=== PATIENT | female | born 2000 | race Caucasian/White ===

== ENCOUNTER 2024-11-14 23:19 | Inpatient (IN) | payer MEDICAID ==
[~2024-11-14] VITALS: Ht 162.6 cm; Wt 54.4 kg
[2024-11-15 00:18] LABS: BASOPHILS % 0.8 % (0.0-2.0); EOSINOPHILS % 1.7 % (0.0-5.0); HEMATOCRIT. 33.4 % (36.0-48.0); HEMOGLOBIN. 11.2 g/dL (12.0-16.0); LYMPHOCYTES % 18.7 % (20.0-50.0); MEAN PLATELET VOLUME 7.2 fl (7.4-10.4); MONOCYTES % 5.7 % (2.0-8.0); NEUTROPHILS % 73.1 % (40.0-76.0); PLATELET 412 x1000/uL (130-400); RED BLOOD CELL COUNT 3.87 mill/uL (4.2-5.4); RED CELL DISTRIBUTION WIDTH 14.4 % (11.6-14.6)
[2024-11-15 00:28] LABS: CREATININE 0.8 mg/dL (0.6-1.0)
[2024-11-15 00:29] LABS: UREA NITROGEN BLOOD 16 mg/dL (9-23)
[2024-11-15 00:31] LABS: HCG SCREEN NEGATIVE
[2024-11-15 01:12] LABS: ASPARTATE AMINOTRANSFERASE 20 IU/L (<34); BILIRUBIN DIRECT < 0.1 mg/dL (<=3.0); BILIRUBIN TOTAL 0.2 mg/dL (0.1-1.0); PROTEIN TOTAL 7.9 g/dL (6.0-8.3)
[2024-11-15] MEDS: ONDANSETRON HCL 4MG TABLET PO ONE (01:37)
[2024-11-15] MEDS: ACETAMINOPHEN 325MG TABLET PO ONE (01:38)
[2024-11-15 01:50] LABS: COLOR URINE YELLOW (YELLOW)
[2024-11-15 01:51] LABS: CLARITY URINE CLOUDY (CLEAR); GLUCOSE URINE NEGATIVE (NEGATIVE); KETONES URINE NEGATIVE (NEGATIVE); OCCULT BLOOD URINE 2+ (NEGATIVE); PH URINE 6.0 (4.5-8.0); PROTEIN URINE 2+ (NEGATIVE); SPECIFIC GRAVITY URINE 1.010 (1.005-1.030)
[2024-11-15 01:52] LABS: NITRITE URINE NEGATIVE (NEGATIVE); UROBILINOGEN URINE 0.2 E.U./dL (0.2-1.0)
[2024-11-15 01:53] LABS: LEUKOCYTE ESTERASE URINE 2+ (NEGATIVE)
[2024-11-15 02:11] LABS: SQUAMOUS EPITHELIAL CELL URINE FEW /lpf (RARE/1+)
[2024-11-15 02:13] LABS: BACTERIA URINE 1+
[2024-11-15] MEDS: CEFTRIAXONE 1GM/50ML 50 ML IV SCH (02:35)
[2024-11-15] MEDS ORDERED: GUAIFENESIN 200MG/10ML SUGAR FREE UDC PO PRN (03:15)
[2024-11-15] MEDS ORDERED: KETOROLAC 15MG/ML VIAL IV PRN (03:15)
[2024-11-15] MEDS ORDERED: DOCUSATE SODIUM 100MG CAPSULE PO PRN (03:15)
[2024-11-15] MEDS ORDERED: IPRATROPIUM/ALBUTEROL 0.5-3(2.5)MG/3ML NEB HHN PRN (03:15)
[2024-11-15] MEDS ORDERED: ACETAMINOPHEN 325MG TABLET PO PRN ×2 (03:15)
[2024-11-15] MEDS ORDERED: ONDANSETRON HCL 4MG/2ML INJ IV PRN (03:15)
[2024-11-15] MEDS ORDERED: MAGNESIUM/ALUMINUM HYDROXIDE/SIMETHICONE 30ML UDC PO PRN (03:15)
[2024-11-15] MEDS ORDERED: CLONIDINE 0.1MG TABLET PO PRN (03:15)
[2024-11-15] MEDS: METRONIDAZOLE 500 MG PREMIX 100 ML IV ONE (03:40)
[2024-11-15] MEDS: SODIUM CHLORIDE 0.9% 1,000 ML IV SCH (03:40)
[2024-11-15] MEDS: IOHEXOL-300 100 ML BOTTLE ONE (03:46)
[2024-11-15 06:11] VITALS: BP 105/50; PULSE 68; RESP 18; TEMP 36.3
[2024-11-15 08:00] VITALS: BP 86/55; PULSE 56; RESP 16; TEMP 36.5; O2SAT 99
[2024-11-15] MEDS: PANTOPRAZOLE SODIUM 40 MG/VIAL IV SCH (09:04)
[2024-11-15 11:21] LABS: CREATININE 0.7 mg/dL (0.6-1.0); TRIGLYCERIDE 73 mg/dL (0-150)
[2024-11-15 11:22] LABS: LDL CHOLESTEROL 98 mg/dL (5-100); UREA NITROGEN BLOOD 12 mg/dL (9-23)
[2024-11-15 11:27] LABS: BASOPHILS % 0.5 % (0.0-2.0); EOSINOPHILS % 3.8 % (0.0-5.0); HEMATOCRIT. 32.5 % (36.0-48.0); HEMOGLOBIN. 10.9 g/dL (12.0-16.0); LYMPHOCYTES % 27.6 % (20.0-50.0); MEAN PLATELET VOLUME 7.4 fl (7.4-10.4); MONOCYTES % 7.0 % (2.0-8.0); NEUTROPHILS % 61.1 % (40.0-76.0); PLATELET 387 x1000/uL (130-400); RED BLOOD CELL COUNT 3.76 mill/uL (4.2-5.4); RED CELL DISTRIBUTION WIDTH 14.5 % (11.6-14.6)
[2024-11-15] MEDS ORDERED: TOPUD PO (11:54)
[2024-11-15] MEDS ORDERED: SULF1TAB48 PO (11:54)
[2024-11-15 12:00] VITALS: BP 85/44; PULSE 83; RESP 14; TEMP 36.3; O2SAT 98
[2024-11-15 15:20] VITALS: BP 85/48; PULSE 83; TEMP 97.4; O2SAT 98
[2024-11-15 16:00] VITALS: BP 105/62; PULSE 66; RESP 18; TEMP 36.3; O2SAT 100
[2024-11-16] MEDS ORDERED: CEFTRIAXONE 1GM/50ML 50 ML IV SCH ×2 (02:00)
== END 2024-11-15 17:00 | disposition home or self-care (01) | DRG 720 ==
LOC: ER 23:19 → 7EST 11-15 02:24 → EDBEDREQ 11-15 02:26 → EDBEDREQTM 11-15 02:26 → ENRESERV 11-15 02:47
PROVIDERS: ADMIT Hospitalist; ATTEND Hospitalist
DX: A41.9 Sepsis, unspecified organism (principal); K81.9 Cholecystitis, unspecified; D64.9 Anemia, unspecified; K37 Unspecified appendicitis; N39.0 Urinary tract infection, site not specified
CPT/HCPCS: 36415; 74177; 76700; 76857; 80048; 80061; 80076; 81003; 82728; 83540; 83550; 83605; 84443; 84703; 85025; 86850; 86900; 87077; 87186; 99285; J0696; J2470; J3490; Q0162; Q9967